=== PATIENT | male | born 1950 | race Caucasian/White ===

== ENCOUNTER 2021-01-28 19:50 | Emergency (ER) | payer MEDICARE ==
[~2021-01-28] VITALS: Ht 165.1 cm; Wt 93.9 kg
[~2021-01-28 19:50] MED LIST: ASPIRIN 81M81 MG/TA2 PO; AZOR 10 MG-40 M1 TAB PO; CIPRO 500MG TA500 MG PO; ENABLEX 7.5MG7.5 MG PO; EPA1000 MG PO; HCTZ 25MG TAB25 MG PO; LORTAB 5/500 501 TAB PO; MVI; NORVASC 10MG10 MG PO; enablex
[2021-01-28 20:00] VITALS: TEMP 98.5
[2021-01-28 21:45] VITALS: BP 172/90; PULSE 76
== END 2021-01-28 21:45 | disposition home or self-care (01) ==
LOC: COL.ER 19:50
DX: T63.461A Toxic effect of venom of wasps, accidental (unintentional), initial encounter (principal)